=== PATIENT | female | born 1955 | race Caucasian/White ===

== ENCOUNTER 2019-04-12 07:33 | Inpatient (IN) | payer OTHER, SELFPAY ==
[2019-04-01 15:12] VITALS: BP 158/96; PULSE 88; RESP 16; TEMP 37.1; O2SAT 98; BMI 29.2
--- NOTE | 2019-04-01 15:18 | SDCEKG_ITS ---
Test Reason : Blood Pressure : / mmHG Vent. Rate : 074 BPM Atrial Rate : 074 BPM P-R Int : 130 ms QRS Dur : 084 ms QT Int : 378 ms P-R-T Axes : 034 -23 013 degrees QTc Int : 419 ms Normal sinus rhythm Moderate voltage criteria for LVH, may be normal variant Borderline ECG Confirmed by ALMA MARTINI ([id number]), deputy editor in chief JULIET HATCH ([id number]) on 04/05/2019 2:00:09 PM Referred By: Lse Mirza Confirmed By:ALMA MARTINI
[2019-04-01 15:51] LABS: Absolute Lymphocyte Count 1.06 X10^3/uL (0.83-4.51); Absolute Neutrophil Count 4.1 X10^3/uL (2.0-7.7); Basophil# 0.02 X10^3/uL; Basophil% 0.4 % (0-1); Eosinophil# 0.07 X10^3/uL; Eosinophils% 1.2 % (0-5); Hematocrit 45.9 % (37-47); Hemoglobin 14.6 g/dL (12.0-15.0); Lymphocyte # 1.06 X10^3/ul (4.0); Lymphocyte % 18.7 % (19-41); Mean Corp Hgb Conc 31.8 g/dL (32-36); Mean Corpuscular Hgb 27.9 pg (27.0-32.0); Mean Corpuscular Volume 87.8 fL (81-99); Mean Platelet Vol. 9.6 fl (6.2-12.0); Monocyte# 0.39 X10^3/uL; Monocyte% 6.9 % (0-10); NRBC Flagged by Analyzer 0 % (0-5); Neutrophil % 72.4 % (47-70); Platelet Count 279 K/mm3 (150-450); RBC Distribution Width CV 14.1 % (11.6-14.6); RBC Distribution Width SD 45.3 fl (35.1-43.9); Red Blood Count 5.23 M/mm3 (4.2-5.4); White Blood Count 5.7 K/mm3 (4.4-11.0)
[2019-04-01 16:12] LABS: Anion Gap 9 (5-15); BUN 13 mg/dL (7-18); BUN/Creat Ratio 14.6 RATIO (10-20); Calcium,Total 8.9 mg/dL (8.5-10.1); Chloride 107 mmol/L (98-107); Creatinine, Serum 0.89 mg/dL (0.55-1.02); EST Glomerular Filtration Rate 68 mL/min (>60); Est Glom Filt Rate - Afr Amer 83 mL/min (>60); Estimated Creatinine Clearance 63.73 ml/min; Glucose 98 mg/dL (74-106); Potassium 3.9 mmol/L (3.5-5.1); Sodium Level 143 mmol/L (136-145)
[2019-04-12] VITALS (15 sets, daily range): BP systolic 87–138; BP diastolic 54–78; PULSE 56–75; RESP 16–18; TEMP 36.3–37.2; O2SAT 92–100; BMI 29.2; BMI 29.3
[2019-04-12] MEDS: Magnesium Sulfate 4gm/100mL 4 GM/100 ML IV.SOLN. IV (08:13)
[2019-04-12] MEDS: Acetaminophen 500 MG Tablet 1000 MG PO ×3 (08:14→22:45)
[2019-04-12] MEDS: Gabapentin 600 MG Tablet PO (08:14)
[2019-04-12 08:26] LABS: Bedside Glucose 81 mg/dL (70-110)
--- NOTE | 2019-04-12 09:45 | HIP_PTH ---
PATIENT: WILL LAZO LOC: [facility] U#:[id number] AGE/SX: 63/F ROOM: MS313 RE04/12/[address]: Dr. Les Mirza DO : 1955 BED: 1 DIS: 04/13/2019 SPEC #: [id number] RECD: 04/12/19 12:24 STATUS: DAWNA REQ #: [id number] CLIVE: 04/12/19 09:[address]: Les Mirza DEPT: SURGICAL PATHOLOGY RECD BY: Flakita Ann ENTERED: 04/12/19 13:26 SP TYPE: TOTAL HIP OTHR DR: Dr. Kush Espinosa MD Tissues: Hip, NOS Procedures: Decalcification bone/plaque Surgery Specimen Level IV HEADER OPERATION: total hip replacement PRE-OP DIAGNOSIS: Unilateral primary osteoarthritis, left hip TISSUE SUBMITTED: Left hip bone and soft tissue MICROSCOPIC DIAGNOSIS Left hip bone and soft tissue, total hip replacement/resection: Femoral head with degenerative osteoarthritic changes. Fragments of fibroconnective tissue, fibroadipose tissue and reactive synovial tissue. MARYCARMEN:fox 04/15/19 MICROSCOPIC DESCRIPTION Slides are reviewed. GROSS DESCRIPTION Received is one container labeled with the patient's name and designated left hip bone and soft tissue. The specimen consists of a femoral head measuring 4.5 x 5 x 4.5 cm. The portion of femoral neck measures 1.5 cm in length. The articular surface displays prominent osteophyte formation, eburnation and bone erosion. Also present in the specimen container are multiple irregular fragments of bone reamings and pink-yellow soft tissue measuring in aggregate 8 x 7 x 2.5 cm. Psychologist Social sections are submitted in two cassettes as follows: 1 - soft tissue, 2 - bone after decalcification. / MARYCARMEN:fox 04/12/19 TC:5 CPT: 12014, 47760
[2019-04-12] MEDS: Cefazolin 2 GM in 0.9% Normal Saline 100 ML IV (10:28)
--- NOTE | 2019-04-12 11:32 | OP.PCM_ITS ---
Report of Operation Date of Procedure: 04/12/19 Pre-Operative Diagnosis: OA Left hip Post-Operative Diagnosis: same Surgery/Procedure Performed:: Left THR wearing apparel shaker: Yunior Alberts Type of Anesthesia:: Spinal Anesthesiologist: Gabriel Padgett Specimen's removed: bone Estimated Blood Loss (mL): 75 cc Description of Procedure: Primary Surgeon/Physician: Les Mirza wearing apparel shaker: Yunior Alberts PA-C wearing apparel shaker: Pre-Operative Diagnosis: OA left hip Post-Operative Diagnosis: same Surgery/Procedure Performed: Left THR Estimated Blood Loss: 75 cc Specimen's Removed: bone Type of Anesthesia: spinal ASA Class: ASA3 Severe Disease Implants: [[place] Trident tritanium size 52 cup, neutral MDM head, size 6 Accolade 2 femoral stem ] Surgical Indications: Patient has severe end-stage osteoarthritic changes in the [left ] hip. They have failed conservative measures including activity modification, anti-inflammatories, use of assistive devices. This to the point where the pain affects their ability to enjoy life and complete activities of daily living without discomfort. Patient has elected to undergo the above procedure Procedure Description: The patient was greeted in the preoperative area the [left ] hip was marked with surgical marker preoperative antibiotics administered. The patient was then taken to or suite in stable condition. Preoperative tranexamic acid was also utilized. Once the patient was placed in the supine position on the operating room table and once adequate anesthesia was obtained they were then placed in the lateral decubitus position with the surgical hip facing the field. All bony prominences were well-padded. A commercial hip position was utilized. The appropriate extremity was then prepped and draped in usual sterile fashion. Ioban was placed on the skin. Surgical timeout was performed and surgery was commenced. A standard posterior approach to the hip was then performed. Incision was planned and carried out with a #10 blade scalpel. Dissection was then carried length of the incision to the IT band which was split proximally and distally. A Charnley retractor was then placed for soft tissue retraction exposing the piriformis. A standard posterior capsulotomy was performed. Severe eburnation of bone was noted and periarticular osteophytes were identified consistent with severe end-stage osteoarthritis. A femoral neck osteotomy guide was used to kenia the proximal femur. A femoral osteotomy was then created approximately 1 fingerbreadth above the lesser trochanter. This was measured and placed on the back table. Once this was complete acetabular retractors were placed anteriorly and posteriorly. Labrum was then removed from the acetabulum exposing the entire cup of the acetabulum. Sequential reaming was then commenced and the acetabulum was medialized and sequentially widened in order to accommodate appropriate size cup. The acetabular cup was then impacted into position to the appropriate depth referencing approximately 30? anteversion and 45? of inclination. Excellent purchase was obtained. An appropriate size MDM liner was then placed. Attention was then turned to the femoral preparation. The hip was placed in the 90/90 position and a lateralizing box osteotome was utilized. Femoral starting awl was used followed by sequential broaching to the appropriate size. Excellent purchase was obtained with the stem no stem subsidence and excellent rotational stability was confirmed. A calcar reamer was then used in the trial head neck was placed on the broach. The hip was then located and taken through full range of motion flexion internal and external rotation as well as extension. Excellent stability was noted no impingement was identified of the components and leg lengths appear to be appropriate. The hip was at this point dislocated and the trial femoral components were removed. The final femoral stem was then implanted and impacted to the appropriate depth. Again excellent purchase was obtained no stem subsidence or rotational instability was noted. The hip was once again trialed and confirmation of leg length and stability was performed. Soft tissue tension also appeared to be appropriate. At this point the hip was redislocated and the trunnion was cleaned and dried meticulously in the appropriate size MDM femoral head was placed on the clean dry trunnion using a 12/14 Chandler taper. The hip was once again relocated and again taken through full range of motion. I did inject a cocktail of postoperative pain medication in the deep and superficial tissues. Copious irrigation was performed. Anatomic closure of the piriformis tendon was performed through drill holes in the greater trochanter. A #1 Vicryl 0 Vicryl was utilized in subcutaneous tissue and surgical jacinto were placed in the skin. A well-padded nonadherent dressing was applied. Patient was taken to PACU in stable condition. No complications were identified. Will follow standard postop protocol for total hip arthroplasty. My marketing assistant retail division played a vital role in the procedure beginning with positioning, holding retraction of soft tissues, positioning the leg to optimize visualization during the procedure and assisting with wound closure. - Admit VTE Documentation VTE Present on Admission: No VTE Mechan Device Prophylaxis: SCD's, Thigh High ERIKA Hose VTE Pharm Prophylaxis ordered?: Yes
--- NOTE | 2019-04-12 12:24 | RAD_ITS ---
STUDY: X-RAY - PELVIS AND LEFT HIP REASON FOR EXAM: Female, 63 years old. Presurgical assessment TECHNIQUE: 2 views of the pelvis and hip. COMPARISON: None. FINDINGS: Patient with recent left hip replacement. Anatomical positioning of the prosthesis. No evidence of surgical complication. Intact bilateral pubic rami. Texv-yv-grfhxewo osteoarthritis of the right hip joint. RAD/Hip Min 2 Views (Portable) IMPRESSION: Unremarkable left hip prosthesis placement with no surgical complication. Electronically Signed: Marlon Lester MD at 14:42 EDT Tel [phone], Service support ,
[2019-04-12] MEDS: Lactated Ringers 1,000 ML 125 ML IV (14:22)
[2019-04-12] MEDS: Carbidopa/Levodopa 25/250 Tablet PO ×2 (16:08→22:47)
--- NOTE | 2019-04-12 17:01 | NURSING ---
called to room aware pt up with PT ambulated to bathroom then over to chair when possible vagal episode. pt placed in chair with head back and 2lnc applied. pt found in recliner with head back. vital signs checked. pt placed back in bed in supine position. bp rechecked, pt denies all dizziness
[2019-04-12] MEDS: Aspirin 325 MG Tablet PO (18:32)
[2019-04-12] MEDS: oxyCODONE 5 MG Tablet PO ×2 (18:37→22:47)
[2019-04-12] MEDS: Cefazolin 1 GM/50 ML BAG IV (22:45)
[2019-04-12] MEDS: Senna/Docusate Sodium 1 Tablet 2 TABLET PO (22:46)
[2019-04-12] MEDS: buPROPion (SR) 150 MG Tablet.SA PO (22:48)
[2019-04-13 03:24] VITALS: BP 117/68; PULSE 81; RESP 18; TEMP 37.1; O2SAT 98
[2019-04-13] MEDS: oxyCODONE 5 MG Tablet PO ×4 (03:27→12:12)
[2019-04-13 05:42] LABS: Hematocrit 37.5 % (37-47); Hemoglobin 11.8 g/dL (12.0-15.0); Mean Corp Hgb Conc 31.5 g/dL (32-36); Mean Corpuscular Hgb 27.8 pg (27.0-32.0); Mean Corpuscular Volume 88.2 fL (81-99); Mean Platelet Vol. 9.7 fl (6.2-12.0); Platelet Count 215 K/mm3 (150-450); RBC Distribution Width CV 14.1 % (11.6-14.6); RBC Distribution Width SD 45.6 fl (35.1-43.9); Red Blood Count 4.25 M/mm3 (4.2-5.4); White Blood Count 6.7 K/mm3 (4.4-11.0)
[2019-04-13] MEDS: Cefazolin 1 GM/50 ML BAG IV (05:44)
[2019-04-13] MEDS: Acetaminophen 500 MG Tablet 1000 MG PO ×2 (05:48→13:54)
[2019-04-13] MEDS: buPROPion (SR) 150 MG Tablet.SA PO ×2 (05:49→13:54)
[2019-04-13 06:06] LABS: Anion Gap 5 (5-15); BUN 17 mg/dL (7-18); BUN/Creat Ratio 19.7 RATIO (10-20); Calcium,Total 7.9 mg/dL (8.5-10.1); Chloride 112 mmol/L (98-107); Creatinine, Serum 0.86 mg/dL (0.55-1.02); EST Glomerular Filtration Rate 71 mL/min (>60); Est Glom Filt Rate - Afr Amer 86 mL/min (>60); Estimated Creatinine Clearance 63.49 ml/min; Glucose 96 mg/dL (74-106); Potassium 4.3 mmol/L (3.5-5.1); Sodium Level 143 mmol/L (136-145)
[2019-04-13] MEDS: 0.9% NaCl Peripheral Flush Adult/Peds IV (06:31)
[2019-04-13 07:30] VITALS: O2SAT 98
[2019-04-13 08:00] VITALS: BP 104/61; PULSE 73; RESP 14; TEMP 36.7; O2SAT 96
--- NOTE | 2019-04-13 08:02 | PN.ORTHO_ITS ---
Subjective: Patient sitting at bedside eating breakfast. Patient states pain is well- managed. Patient denies chest pain, shortness breath, calf pain, nausea v omiting. Patient has no other complaints. Patient ready for discharge home today. Patient states she plans on doing her outpatient therapy at [facility] Objective: Dressings clean dry intact. Negative signs and symptoms of DVT. Patient has good plantar flexion dorsiflexion bilateral feet. Patient has good flexion- extension of the left knee. Patient no instability with motion of the left hip. Patient's vitals and labs within normal limits. Patient is afebrile, neurovascular is otherwise intact. Patient speaking full sentences with no obvious respiratory distress. - Physical Exam General: Alert, Oriented x3, Cooperative HEENT: PERRLA Oral: Moist Mucosa Cardiovascular: Regular rate Neurological: Cranial nerves II-XII grossly intact Psych/Mental Status: Normal Affect, Alert and oriented to time, place, person, mood and affect Vital Signs Temp Pulse Resp BP Pulse Ox 98.8 F 81 18 117/68 98 04/13/19 03:24 04/13/19 03:24 04/13/19 03:24 04/13/19 03:24 04/13/19 03:24 Oxygen Flow Rate (L/min) 2 Oxygen Delivery Method Room Air Weight: 84.9 kg Body Mass Index (BMI) 29.3 Intake and Output for Last 24 Hours 04/11/19 04/12/19 04/13/19 23:59 23:59 23:59 Intake Total 2738 / 2738 1421 / 1421 Balance 2738 / 2738 1421 / 1421 Laboratory Tests Past 24 Hrs 04/13/19 04/13/19 05:14 05:14 WBC 6.7 RBC 4.25 Hgb 11.8 L Hct 37.5 MCV 88.2 MCH 27.8 MCHC 31.5 L RDW Std Deviation 45.6 H RDW Coeff of Danny 14.1 Plt Count 215 MPV 9.7 Sodium 143 Potassium 4.3 Chloride 112 H Carbon Dioxide 26.0 Anion Gap 5 BUN 17 Creatinine 0.86 Estim Creat Clear Calc 63.49 Est GFR (MDRD) Af Amer 86 Est GFR (MDRD) Non-Af 71 BUN/Creatinine Ratio 19.7 Glucose 96 Calcium 7.9 L POC Glucose 04/12/19 08:05 POC Glucose 81 Medical Necessity - Tobacco Use Smoking Status: Former smoker Tobacco Use: Non-smoker Assessment/Plan Status post left total hip arthroplasty Plan 1. Continue all pain medications as prescribed 2. Continue physical therapy today, weight-bear as tolerated with walker. Continue with outpatient physical therapy at [facility] [place] 3. Aspirin 325 mg 1 p.o. every 12 hours x30 days for postop DVT prophylaxis 4. Encourage incentive spirometry 5. Discharge home today after p.m. therapy 6. Follow-up as scheduled, see pink sheet
--- NOTE | 2019-04-13 08:09 | DCINST_ITS ---
Discharge Diet: No Restrictions Discharge Activity: May Not Drive, May Shower, Use Walker May shower in (days): 3 - only if incision is dry and without drainage. Do NOT soak/submerge in tub/pool/delacruz/stream/hot tub. May resume sexual activity in: No Restrictions Ice area for (Minutes): 20 - every hour while awake Weight Bearing Status: Weight bearing as tolerated Lifting Restrictions: 20 pounds Elevate: Operative Extremity Call your doctor if your incision/area has: Continuous Slow Oozing, Sudden Increased Bleeding, Increased Pain/ Swelling, Increased Redness, Foul Smelling Discharge Call your doctor if you observe: Fever of 101 or Higher, Inability to urinate, Inability to have a bowel movement, Shortness of breath, Fainting spells, Chest pain, Increased palpitations (irregular heartbeat), Calf discomfort, Uncontrolled pain Change Dressing in (Days):: 0 - Change daily and as needed. Remove Dressing in (days):: 8 Cleanse incision/area with: Soap & Water Allergies/Adverse Reactions: Allergies Sulfa (Sulfonamide Antibiotics) Allergy (Verified 04/12/19 14:23) Rash Medications to take at Discharge Bupropion HCl [Wellbutrin Sr] 150 mg PO TID 04/01/19 Carbidopa/Levodopa [Carbidopa-Levo 25-250 mg Odt] 1 ea PO LUNCH 04/01/19 Carbidopa/Levodopa [Carbidopa-Levo 25-250 mg Odt] 2 ea PO BID 04/01/19 Lisinopril [Zestril] 10 mg PO DAILY 04/01/19 Omeprazole Magnesium [Prilosec Otc] 20 mg PO PRN PRN 04/01/19 Acetaminophen [Tylenol] 1,000 mg PO Q8 #90 tab 04/13/19 Aspirin 325 mg PO BIDCM #60 tab 04/13/19 Oxycodone [Oxyir] 5 - 10 mg PO Q4H PRN PRN 7 Days #90 tab 04/13/19 The following prescriptions were given: Aspirin 325 mg PO BIDCM #60 tab Prescription Printed Oxycodone [Oxyir] 5 - 10 mg PO Q4H PRN PRN 7 Days #90 tab PRN Reason: Mod-Severe Pain (4-10/10) Prescription Printed Acetaminophen [Tylenol] 1,000 mg PO Q8 #90 tab Prescription Printed Primary Care Physician: Kush Espinosa [Primary Care Provider] - Test Results: Test results from this visit will be discussed in further detail at your follow- up appointment, if applicable. Please Follow Up With: Les Mirza, DO When: see pink sheet
[2019-04-13] MEDS: Senna/Docusate Sodium 1 Tablet 2 TABLET PO (08:15)
[2019-04-13] MEDS: Aspirin 325 MG Tablet PO (08:15)
[2019-04-13] MEDS: Carbidopa/Levodopa 25/250 Tablet PO ×2 (08:16→12:13)
--- NOTE | 2019-04-13 10:20 | CASEMGMT ---
RN CM Face to Face with patient for initial transition planning/care coordination assessment. RN CM introduced self and role at [facility]. Patient sitting in chair, alert and oriented. Patient willing to participate in assessment and is able to answer all questions appropriately. Care providers, pharmacy, and demographics verified. Patient wishes to discharge home and is setup with [facility] for outpatient therapy. Patient states she has no further needs or concerns at this time. CM to follow for discharge planning needs that may arise. PCP: Francisca Specialists: gabriel Mirza Preferred Pharmacy: [facility] Insurance: Package Plan Prescription Benefit: yes Living Will/HPOA: yes, Kyle Hamm LNOK: Living Arrangements: Patient lives with in 2 story home with bed and bath on the first floor. 3 steps with railing to enter the home. Transportation: /daughter DME/HHC: Patient states she has shower chair, BSC, walker, cane, and grab bars at home. Outpatient therapy is setup at [facility] for 04/16/19. Disposition Plan: Patient to discharge home with family support and follow-up plans in place. Rebekah LILLY, RN, CM
[2019-04-13] MEDS: Lisinopril 10 MG Tablet PO (12:12)
[2019-04-13 12:13] VITALS: BP 119/69; PULSE 77; RESP 14; TEMP 36.2; O2SAT 94
== END 2019-04-13 14:15 | disposition home or self-care (01) | DRG 470 ==
PROVIDERS: Admitting Provider Orthopaedic Surgery; Family Provider Family Medicine Geriatric Medicine; PCP Family Medicine Geriatric Medicine; Referring Provider Orthopaedic Surgery; Visit Provider Orthopaedic Surgery
PROC: 0SRB0JZ Replacement of Left Hip Joint with Synthetic Substitute, Open Approach (ICD-10-PCS; CPT 27130; principal; 2019-04-12 09:20)
DX: M16.12 Unilateral primary osteoarthritis, left hip (principal); I10 Essential (primary) hypertension; Z79.891 Long term (current) use of opiate analgesic; Z79.899 Other long term (current) drug therapy; F32.9 Major depressive disorder, single episode, unspecified; Z87.891 Personal history of nicotine dependence; F41.9 Anxiety disorder, unspecified; G25.81 Restless legs syndrome
CPT/HCPCS: 36415; 73502; 80048; 82962; 85025; 85027; 87077; 87081; 88305; 88311; 93005; 97110; 97162; 97166; 97530; C1776; J7120; A4216

== ENCOUNTER → 2023-06-04 | Outpatient (CLI) | payer MEDICARE, OTHER, SELFPAY ==
--- NOTE | 2023-06-04 09:44 | EKG12_ITS ---
Test Reason : PREOP Blood Pressure : / mmHG Vent. Rate : 063 BPM Atrial Rate : 063 BPM P-R Int : 128 ms QRS Dur : 076 ms QT Int : 374 ms P-R-T Axes : 040 -18 029 degrees QTc Int : 382 ms Normal sinus rhythm Normal ECG Confirmed by SHEREEN ASHLEY, BUSTER ([id number]), science editor MARBELLA GUALLPA ([id number]) on 06/05/2023 6:44:47 AM Referred By: Yunior Alberts Confirmed By:BUSTER REGAN MD
[2023-06-04 10:36] LABS: Absolute Lymphocyte Count 1.02 X10^3/uL (0.83-4.51); Absolute Neutrophil Count 3.2 X10^3/uL (2.0-7.7); Basophil# 0.02 X10^3/uL; Basophil% 0.4 % (0-1); Eosinophil# 0.06 X10^3/uL; Eosinophils% 1.3 % (0-5); Hematocrit 43.9 % (37-47); Hemoglobin 13.7 g/dL (12.0-15.0); Lymphocyte # 1.02 X10^3/ul (0.83-4.51); Lymphocyte % 21.7 % (19-41); Mean Corp Hgb Conc 31.2 g/dL (32-36); Mean Corpuscular Hgb 28.5 pg (27.0-32.0); Mean Corpuscular Volume 91.3 fL (81-99); Mean Platelet Vol. 9.8 fl (6.2-12.0); Monocyte# 0.35 X10^3/uL; Monocyte% 7.5 % (0-10); NRBC Flagged by Analyzer 0 % (0-5); Neutrophil # 3.22 X10^3/uL (2.7-7.7); Neutrophil % 68.7 % (47-70); Platelet Count 357 K/mm3 (150-450); RBC Distribution Width SD 43.7 fl (35.1-43.9); Red Blood Count 4.81 M/mm3 (4.2-5.4); White Blood Count 4.7 K/mm3 (4.4-11.0)
[2023-06-04 11:02] LABS: Anion Gap 4 (5-15); BUN 15 mg/dL (7-18); BUN/Creat Ratio 14.9 RATIO (10-20); Calcium,Total 9.3 mg/dL (8.5-10.1); Chloride 107 mmol/L (98-107); Creatinine, Serum 1.01 mg/dL (0.55-1.02); EST Glomerular Filtration Rate 58 mL/min (>60); Est Glom Filt Rate - Afr Amer 70 mL/min (>60); Glucose 86 mg/dL (74-106); Potassium 4.5 mmol/L (3.5-5.1); Sodium Level 138 mmol/L (136-145)
[2023-06-04 11:07] LABS: Hemoglobin A1c 5.4 % (3.8-5.6)
== END | disposition home or self-care (01) ==
PROVIDERS: PCP Family Medicine Geriatric Medicine; Referring Provider Physician Assistant; Visit Provider Physician Assistant
DX: Z01.818 Encounter for other preprocedural examination (principal); M16.11 Unilateral primary osteoarthritis, right hip; Z01.810 Encounter for preprocedural cardiovascular examination
CPT/HCPCS: 36415; 80048; 83036; 85025; 93005

== ENCOUNTER → 2023-09-05 | Outpatient (CLI) | payer MEDICARE, OTHER, SELFPAY ==
[2023-09-05 11:29] LABS: Absolute Lymphocyte Count 1.01 X10^3/uL (0.83-4.51); Absolute Neutrophil Count 3.3 X10^3/uL (2.0-7.7); Basophil# 0.03 X10^3/uL; Basophil% 0.6 % (0-1); Eosinophil# 0.11 X10^3/uL; Eosinophils% 2.3 % (0-5); Hematocrit 43.5 % (37-47); Hemoglobin 13.2 g/dL (12.0-15.0); Lymphocyte # 1.01 X10^3/ul (0.83-4.51); Mean Corp Hgb Conc 30.3 g/dL (32-36); Mean Corpuscular Volume 92.2 fL (81-99); Mean Platelet Vol. 10.2 fl (6.2-12.0); Monocyte# 0.32 X10^3/uL; Monocyte% 6.6 % (0-10); NRBC Flagged by Analyzer 0 % (0-5); Neutrophil # 3.33 X10^3/uL (2.7-7.7); Neutrophil % 69.1 % (47-70); Platelet Count 296 K/mm3 (150-450); RBC Distribution Width CV 13.8 % (11.6-14.6); RBC Distribution Width SD 46.8 fl (35.1-43.9); Red Blood Count 4.72 M/mm3 (4.2-5.4); White Blood Count 4.8 K/mm3 (4.4-11.0)
[2023-09-05 11:56] LABS: Anion Gap 5 (5-15); BUN 11 mg/dL (7-18); BUN/Creat Ratio 11.8 RATIO (10-20); Calcium,Total 9.1 mg/dL (8.5-10.1); Chloride 107 mmol/L (98-107); Creatinine, Serum 0.93 mg/dL (0.55-1.02); EST Glomerular Filtration Rate 64 mL/min (>60); Est Glom Filt Rate - Afr Amer 77 mL/min (>60); Glucose 95 mg/dL (74-106); Potassium 4.1 mmol/L (3.5-5.1); Sodium Level 140 mmol/L (136-145)
[2023-09-05 12:00] LABS: Hemoglobin A1c 5.1 % (3.8-5.6)
== END | disposition home or self-care (01) ==
PROVIDERS: PCP Family Medicine Geriatric Medicine; Referring Provider Physician Assistant; Visit Provider Physician Assistant
DX: Z01.818 Encounter for other preprocedural examination (principal); Z01.810 Encounter for preprocedural cardiovascular examination; M16.11 Unilateral primary osteoarthritis, right hip; I10 Essential (primary) hypertension
CPT/HCPCS: 36415; 80048; 83036; 85025

== ENCOUNTER → 2023-10-02 | Outpatient (CLI) | payer MEDICARE, OTHER, SELFPAY ==
--- NOTE | 2023-10-01 07:30 | HIP_PTH ---
PATHOLOGY RESULTS PATIENT: WILL LAZO [facility] U#:[id number] AGE/SX: 67/F ROOM: RE10/02/[address]: Dr. Les Mirza DO : 1955 BED: DIS: 10/02/2023 SPEC #: [id number] RECD: 10/03/23 08:14 STATUS: DAWNA REJulio #: [id number] CLIVE: 10/01/23 07:[address]: Les Mirza DEPT: SURGICAL PATHOLOGY RECD BY: Bárbara Ring ENTERED: 10/03/23 08:14 SP TYPE: TOTAL HIP OTHR DR: Dr. Kush Espinosa MD [facility] [place] Tissues: Hip, NOS Procedures: Decalcification bone/plaque Surgery Specimen Level IV HEADER OPERATION: Total right hip arthroplasty PRE-OP DIAGNOSIS: Primary osteoarthritis of right hip TISSUE SUBMITTED: Right hip bone and tissue MICROSCOPIC DIAGNOSIS Right hip bone and tissue, total hip replacement/resection: Femoral head with degenerative osteoarthritic changes. Fragments of fibroadipose tissue, fibroconnective tissue, skeletal muscle tissue and reactive synovial tissue. MARYCARMEN:fox 10/08/2023 MICROSCOPIC DESCRIPTION Slides are reviewed. GROSS DESCRIPTION Received is one container labeled with the patient's name and designated right hip bone and tissue. The specimen consists of a paulino femoral head with portion of femoral neck. The femoral head measures 4.5 x 5.0 x 4.0 cm and the femoral neck measures 1.5 cm in length. The articular surface displays prominent osteophyte formation, eburnation and bone erosion. Also present in the specimen container are multiple irregular fragments of bone reamings and pink-yellow soft tissue measuring in aggregate 8.0? x 7.5 x 2.5 cm. Membership Correspondent sections are submitted in two cassettes as follows: 1 - soft tissue, 2??bone after decalcification. / MARYCARMEN:fox 10/03/2023 TC:5 CPT: 09937, 46859
== END | disposition home or self-care (01) ==
LOC: LABSPEC 15:10
PROVIDERS: PCP Family Medicine Geriatric Medicine; Referring Provider Orthopaedic Surgery; Visit Provider Orthopaedic Surgery
DX: M16.11 Unilateral primary osteoarthritis, right hip (principal)
CPT/HCPCS: 88305; 88311